=== PATIENT | female | born 1955 | race Caucasian/White ===

== ENCOUNTER → 2016-07-07 | Outpatient (CLI) | payer BC ==
[~2016-07-07] MED LIST: AMLODIPINE BESY10 MG PO; ANTI HTN; ATARAX PO; BENADRYL25 M1 PO; CELEXA PO; EFFEXOR XR75 MG PO; EFFEXOR75 M1 PO; HYDROCHLOROTHIA25 MG PO; LEXAPRO5 MG PO; LISINOPRIL PO; LISINOPRIL-HCTZ1 T14 PO; LISINOPRIL1 GM PO; NORVASC10 MG; PAXIL30 MG PO; PREDNISONE10 MG PO; PREDNISONE50 MG PO; RANITIDINE HCL150 M1 PO; WELLBUTRIN PO
--- NOTE | ~2016-07-07 | BD1 ---
[facility] A Service of [facility] RADIOLOGY TEXT RESULTS PATIENT: SANFORD VIDAL LOCATION: [facility] : 53 UNIT #: [id number] AGE: [address]: AUSTYN SAEZ DO SEX: F ORDER DR: [id number] [place] [id number] O MR#: [id number] Acc #: [id number] NAME: SANFORD VIDAL : 1955 SEX: F STUDY DATE/TIME: 07/07/2016 9:06 UNIT: [facility] ROOM: STUDY DESCRIPTION: Dexa Bone Dens 1+ Site Attending Physician: Austyn Saez D.O. Referring Physician: Austyn Saez D.O. Ordering Physician: Austyn Saez D.O. Primary Care Physician: Austyn Saez D.O. MEDICAL IMAGING REPORT This report is preliminary unless electronic signature is present. EXAM DXA scan 07/07/2016 HISTORY Status post menopause with no hormone replacement therapy. Osteopenia. Hypertension with blood pressure medication. Fracture of right wrist in last 10 years. FINDINGS Bone mineral density in the lumbar spine from L1-L4 is 1.136 g/cm2 which is 0.4 standard deviations below the mean when compared to the young adult reference population which is within the range of normal. This is 0.4 standard deviations above the mean when compared to the age-matched population. Compared with 04/11/2013, there has been an increase in bone mineral density in the lumbar spine of 4.5%. Bone mineral density in the left femoral neck was 1.033 g/cm2 which is 0 standard deviations from mean when compared to the young adult reference population which is within the range of normal. This is 0.9 standard deviations above the mean when compared to the age-matched population. Compared with 04/11/2013, there has been a decrease in bone mineral density in the left hip of 0.5%. Bone mineral density in the right hip was 1.097 g/cm2 which is 0.4 standard deviations below the mean when compared to the young adult reference population which is within the range of normal. This is 1.3 standard deviations above the mean when compared to the age-matched population. Compared with 04/11/2013, there has been a decrease in bone mineral density in the right hip of 1.8%. IMPRESSION Bone mineral density in the lumbar spine within the range of normal and within the hips bilaterally also within the range of normal. Compared with 04/11/2013, there has been an increase in bone mineral density in the lumbar spine and a decrease in bone mineral density in the hips bilaterally. [facility] A Service of [facility] RADIOLOGY TEXT RESULTS PATIENT: SANFORD VIDAL LOCATION: [facility] : 53 UNIT #: [id number] AGE: [address]: AUSTYN SAEZ DO SEX: F ORDER DR: Dictated by... Dawood Ybarra M.D. THIS IS AN ELECTRONICALLY VERIFIED REPORT Dawood Ybarra M.D. at 07/07/2016 4:33 PM FRANCY/cuca TD: 07/07/2016 12:25 JOB #: [id number] MEDICAL IMAGING REPORT Page 1 of 1
--- NOTE | ~2016-07-07 | MY11 ---
[facility] A Service of [facility] RADIOLOGY TEXT RESULTS PATIENT: SANFORD VIDAL LOCATION: [facility] : 53 UNIT #: [id number] AGE: [address]: UASTYN SAEZ DO SEX: F ORDER DR: [id number] [place] [id number] O MR#: [id number] Acc #: [id number] NAME: SANFORD VIDAL : 1955 SEX: F STUDY DATE/TIME: 07/07/2016 9:16 UNIT: [facility] ROOM: STUDY DESCRIPTION: MY Mammogram Screening Dig Anand Attending Physician: Austyn Saez D.O. Referring Physician: Austyn Saez D.O. Ordering Physician: Austyn Saez D.O. Primary Care Physician: Austyn Saez D.O. MEDICAL IMAGING REPORT This report is preliminary unless electronic signature is present. EXAM Bilateral digital screening mammogram with CAD Date: 07/07/2016 HISTORY Family history of breast cancer in a paternal grandmother and 2 paternal aunts. No personal history of breast cancer or current complaints. COMPARISON Bilateral screening mammogram 06/29/2015, 10/27/2013, 12/25/2011 FINDINGS CC, MLO views were obtained of each breast utilizing digital technique and reviewed with an FDA-approved CAD device. The breast parenchyma is predominantly fatty replaced. A subcentimeter intramammary lymph node in the 3 o'clock right breast is unchanged from prior exams. No new or suspicious nodule, architectural distortion or clustered microcalcification is seen. There is no abnormal skin thickening or nipple retraction. IMPRESSION BIRADS category 2. Benign findings. Routine bilateral screening mammogram is recommended in year. Patients over the age of 40 are entered into a reminder system with target due date for the next mammogram. A result letter will also be sent to the patient. [facility] A Service [facility] RADIOLOGY TEXT RESULTS PATIENT: SANFORD VIDAL LOCATION: [facility] : 53 UNIT #: [id number] AGE: [address]: AUSTYN SAEZ DO SEX: F ORDER DR: SHEILA: 2 Benign Finding Dictated by... Shanique Bradley M.D. THIS IS AN ELECTRONICALLY VERIFIED REPORT Shanique Bradley M.D. at 07/07/2016 4:35 PM VIET/chidi TD: 07/07/2016 14:41 JOB #: [id number] MEDICAL IMAGING REPORT Page 1 of 1
== END | disposition home or self-care (01) ==
LOC: SMAM 08:20
DX: Z12.31 Encounter for screening mammogram for malignant neoplasm of breast (principal); Z13.820 Encounter for screening for osteoporosis; M85.851 Other specified disorders of bone density and structure, right thigh; M85.852 Other specified disorders of bone density and structure, left thigh; Z78.0 Asymptomatic menopausal state; Z80.3 Family history of malignant neoplasm of breast
CPT/HCPCS: 77080; G0202